=== PATIENT | male | born 1985 | race Caucasian/White ===

== ENCOUNTER 2017-01-05 14:23 | Emergency (ER) | payer OTHER ==
[~2017-01-05] VITALS: Ht 167.6 cm; Wt 76.0 kg
[2017-01-05 14:24] VITALS: BP 147/84; TEMP 98; O2SAT 98
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
[2017-01-05 15:59] VITALS: BP 130/84; PULSE 82; RESP 18; TEMP 98.4; O2SAT 97
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
[2017-01-05] MEDS ORDERED: CYCL1TAB29 PO (17:07)
[2017-01-05] MEDS ORDERED: NAPR500 PO (17:07)
== END 2017-01-05 18:05 | disposition home or self-care (01) ==
LOC: NEPD 14:23
DX: S39.012A Strain of muscle, fascia and tendon of lower back, initial encounter (principal); V43.93XA Unspecified car occupant injured in collision with pick-up truck in traffic accident, initial encounter; Y92.488 Other paved roadways as the place of occurrence of the external cause
CPT/HCPCS: 72110; 99283